=== PATIENT | female | born 1980 | race Caucasian/White ===

== ENCOUNTER 2023-08-02 02:00 | Emergency (ER) | payer BC ==
[~2023-08-02] VITALS: Ht 162.6 cm; Wt 54.4 kg
[2023-08-02 02:13] VITALS: TEMP 98.1
[2023-08-02 02:45] LABS: APPEARANCE,URINE SLIGHTLY CLOUDY (CLEAR); BILIRUBIN,URINE NEGATIVE (NEGATIVE); BLOOD, URINE 3+ Ery/uL (NEGATIVE); COLOR,URINE DARK YELLOW (YELLOW); KETONES,URINE 2+ mg/dL (NEGATIVE); LEUKOCYTE ESTERASE ,URINE 2+ (NEGATIVE); NITRITE, URINE POSITIVE (NEGATIVE); PREGNANCY TEST URINE QUAL NEGATIVE (NEGATIVE); PROTEIN,URINE NEGATIVE (NEGATIVE); UGLUCOSE NEGATIVE (NEGATIVE); UROBILINOGEN,URINE 0.2 EU/dL (0.2)
[2023-08-02 02:46] LABS: ADD URINE CULTURE YES; BACTERIA,URINE Moderate /HPF (None Seen); SQUAMOUS EPITHELIAL CELL,UR Rare /HPF (None Seen); WBC,URINE 51-80 /HPF (0-3)
[2023-08-02] MEDS ORDERED: NITROFURANTOIN/MONOHYDRATE MACROCRYSTALS 100 MG CAPSULE ONE (02:55)
[2023-08-02] MEDS ORDERED: PHENAZOPYRIDINE HCL 200 MG TABLET ONE (02:56)
[2023-08-02] MEDS: NITROFURANTOIN/MONOHYDRATE MACROCRYSTALS 100 MG CAPSULE PO ONE (03:00)
[2023-08-02] MEDS: PHENAZOPYRIDINE HCL 200 MG TABLET PO ONE (03:00)
[2023-08-02] MEDS ORDERED: HYDR-3980 PO (04:25)
[2023-08-02] MEDS ORDERED: ONDA4TAB11 PO (04:25)
[2023-08-02] MEDS ORDERED: NITR-84 PO (04:25)
[2023-08-02] MEDS ORDERED: PHEN-704 PO (04:34)
[2023-08-02 05:12] VITALS: BP 124/77; O2SAT 98
[2023-08-03 23:06] LABS: CHLAMYDIA TRACHOMATIS NAA Negative (Negative); NEISSERIA GONORRHOEAE NAA Negative (Negative)
== END 2023-08-02 05:12 | disposition home or self-care (01) ==
LOC: ER 02:07
DX: N30.90 Cystitis, unspecified without hematuria (principal)
CPT/HCPCS: 81001; 84703-TC; 87086-TC; 87210-TC; 87491; 87591